=== PATIENT | female | born 1930 | race Caucasian/White ===

== ENCOUNTER 2017-10-29 20:30 | Inpatient (IN) | payer OTHER ==
[~2017-10-29] VITALS: Ht 165.1 cm; Wt 95.7 kg
[2017-10-29 20:30] VITALS: BP 101/58
--- NOTE | 2017-10-29 20:40 | NUR ---
87/F BIBA FROM [facility] FOR HYPOTENSION AND N/V/D. PER EMS, PT'S BP ON SCENE 75/43, BS 158, N/V/D, A.FIB ON 12 LEAD, X45 MINS. PT WAS GIVEN 1L NS BOLUS ON 18G IV L AC, 4MG ZOFRAN IVP. PT AOX3, BEDREST AT THIS TIME, MILD CONFUSION NOTED. BP 101/58, HR 115, SPO2 94% ON O2 2L NC, RR 19 EVEN AND UNLABORED. LUNG SOUNDS CLEAR BL. ABD SOFT ROUND NONTENDER. BL LOWER EXTREMITY BOOTS NOTED. PT DENIES ANY PAIN AT THIS TIME. HX HTN, HYPOTHYROID, OBESITY, GERD, PEDAL EDEMA, PRE-DM, DJD, OA. CONNECTED TO MONITOR. ER MD MADE AWARE.
[2017-10-29] MEDS ORDERED: NACL 0.9% 1,000 ML IV ONE (20:52)
[2017-10-29] MEDS ORDERED: DABI150C PO (21:01)
[2017-10-29] MEDS ORDERED: DOCU-463 PO (21:06)
[2017-10-29] MEDS ORDERED: ASPI81CT89 PO (21:06)
[2017-10-29] MEDS ORDERED: LISI30TA6 PO (21:06)
[2017-10-29] MEDS ORDERED: ATOR10TA PO (21:06)
[2017-10-29] MEDS ORDERED: SENN-73 PO (21:06)
[2017-10-29] MEDS ORDERED: METO25TA PO (21:06)
[2017-10-29] MEDS ORDERED: TRAM50TA1 PO (21:11)
[2017-10-29] MEDS ORDERED: ALEN70SO1 PO (21:11)
[2017-10-29] MEDS ORDERED: MULT-153 PO (21:11)
[2017-10-29] MEDS ORDERED: VITD1000 PO (21:11)
[2017-10-29 21:27] LABS: HEMATOCRIT 44.8 % (36-48); HEMOGLOBIN 14.1 g/dL (12.0-16.0); MEAN CORPUSCULAR HEMOGLOBIN 27 pg (27-31); MEAN CORPUSCULAR HGB CONC 32 g/dL (33-37); PLATELET COUNT (AUTO) 284 K/uL (140-450); RED BLOOD CELL COUNT(AUTO) 5.22 MIL/uL (4.20-5.40); RED CELL DISTRIBUTION WIDTH 17.8 % (11.6-13.7); WHITE BLOOD COUNT (AUTO) 13.9 K/uL (4.8-10.8)
--- NOTE | 2017-10-29 21:30 | NUR ---
PT HAS LOOSE STOOL, PT CLEANED WITH BOARDMARKER. PT TOLERATED WELL.
--- NOTE | 2017-10-29 21:31 | NUR ---
NOTED REDNESS AROUND GENITAL AND BUTTOCKS. OPEN WOUND/POSSIBLE SKIN TEAR NOTED ON BUTTOCKS AND R ABD FOLD.
--- NOTE | 2017-10-29 21:39 | NUR ---
ATTEMPTED TO COLLECT URINE WITH STRAIGHT CATH, UNSUCCESSFUL AFTER 2 TRIES, WILL ATTEMPT AGAIN LATER.
[2017-10-29 21:44] LABS: LYMPHOCYTES % (MANUAL) 10 % (20-46); MONOCYTES % (MANUAL) 4 % (5-12); PROTHROMBIN TIME 15.5 secs (10.8-13.4)
[2017-10-29 21:57] LABS: ALBUMIN 2.1 g/dL (3.4-5.0); ANION GAP 14.7 (8-16); ASPARTATE AMINOTRANSFERASE 23 U/L (15-37); CARBON DIOXIDE 27.2 mmol/L (21-32); CHLORIDE 103 mmol/L (98-107); CREATININE 1.2 mg/dL (0.6-1.3); GLUCOSE 141 mg/dL (74-106); LIPASE 141 U/L (73-393); SODIUM SERUM 142 mmol/L (136-145); TOTAL BILIRUBIN 0.8 mg/dL (0.0-1.0); UREA NITROGEN, BLOOD 16 mg/dL (7-18)
[2017-10-29 21:58] LABS: POTASSIUM 2.9 mmol/L (3.5-5.1)
[2017-10-29] MEDS ORDERED: NACL 0.9% 1,600 ML IV ONE (22:00)
[2017-10-29] MEDS ORDERED: PIPERACILLIN/TAZOBACTAM 3.375 GM in DEXTROSE 5% 50 ML IV ONE (22:05)
[2017-10-29] MEDS ORDERED: PIPERACILLIN/TAZOBACTAM 3.375 GM VIAL IV ONE (22:12)
--- NOTE | 2017-10-29 22:15 | NUR ---
PT TAKEN TO CT
--- NOTE | 2017-10-29 22:36 | NUR ---
PT BACK FROM CT. PT RESTING COMFORTABLY, SPO2 98% ON O2 2L NC, RR 22 EVEN AND UNLABORED. BP 129/102, HR 121 AT THIS TIME. ALL NEEDS MET. Addendum: 10/29/17 at 2238 by AMANDA BP 110/50
[2017-10-29] MEDS ORDERED: KCL 20 MEQ/WATER INJ PREMIX 100 ML IV ONE (22:45)
--- NOTE | 2017-10-29 23:13 | NUR ---
MORNING SHOW HOST AND LADLE REPAIRMAN WITH DR. CARRERA ASSISTING AT BEDSIDE FOR MORENO CATH INSERTION, UNSUCCESSFUL ATTEMPT. PT TOLERATED WELL.
--- NOTE | 2017-10-29 23:30 | NUR ---
PT HAS HAD 4X EPISODE LOOSE BM, PT CLEANED. ALL NEEDS MET AT THIS TIME.
[2017-10-30] VITALS (13 sets, daily range): BP systolic 83–134; BP diastolic 44–71
--- NOTE | 2017-10-30 | NUR ---
BP CONTINUES TO TREND IN THE 80S SBP; MD MADE AWARE. LEVOPHED DRIP ORDERED TITRATE TO KEEP ABOVE 90 MMHG.
[2017-10-30] MEDS ORDERED: LEVOFLOXACIN 750 MG/D5W PREMIX 150 ML IV ONE (00:15)
[2017-10-30] MEDS ORDERED: metroNIDAZOLE 500 MG/NS PREMIX 100 ML IV ONE (00:15)
--- NOTE | 2017-10-30 01:00 | NUR ---
MD ATTEMPTED TO INSERT IV WITH US, UNSUCCESSFUL ATTEMPTS ON BL AC, PT TOLERATED WELL.
--- NOTE | 2017-10-30 01:09 | NUR ---
VS NOTED, ER MD MADE AWARE.
[2017-10-30] MEDS ORDERED: NACL 0.9% 1,000 ML IV ONE (01:25)
[2017-10-30] MEDS ORDERED: NOREPINEPHRINE 8 MG in DEXTROSE 5% 250 ML IV PRN ×2 (01:25→23:10)
--- NOTE | 2017-10-30 01:30 | NUR ---
ER MD AT BEDSIDE TO SPEAK WITH PT. PT ALERT AND ORIENTED TO NAME, TIME, PLACE, SITUATION AT THIS TIME PT ELECTS FOR FULL TREATMENT/FULL CODE, INCLUDING CPR, INTUBATION AND OTHER TREATMENTS.
[2017-10-30] MEDS ORDERED: NACL 0.9% 1,000 ML IV SCH (01:31)
[2017-10-30] MEDS ORDERED: HYDROcodone/APAP 7.5/325 MG 1 TAB PO PRN (01:35)
[2017-10-30] MEDS ORDERED: ONDANSETRON 4 MG/2 ML VIAL IVP PRN (01:35)
[2017-10-30] MEDS ORDERED: ACETAMINOPHEN 325 MG TAB PO PRN (01:35)
[2017-10-30] MEDS ORDERED: fentaNYL 0.05 MG/ML VIAL IVP ONE (01:35)
[2017-10-30] MEDS ORDERED: NOREPINEPHRINE 4 MG/4 ML VIAL IV ONE ×2 (01:43→23:20)
--- NOTE | 2017-10-30 01:57 | NUR ---
HOLD LEVOPHED ORDER AT THIS TIME PER MD, BP 98/56. PT TO BE TRANSFERRED TO ICU
[2017-10-30] MEDS ORDERED: LORazepam 2 MG/ML VIAL IVP ONE (02:00)
[2017-10-30] MEDS ORDERED: NOREPINEPHRINE 4 MG in DEXTROSE 5% 250 ML IV PRN (02:00)
--- NOTE | 2017-10-30 02:00 | NUR ---
Patient will be admitted to care of DR. VILLASENOR. Admited to ICU. Will go to room 5. Belongings list completed. Report to BRITTNEY PEPE.
--- NOTE | 2017-10-30 02:02 | NUR ---
RECEIVED PT FROM ER VIA IMELDA. PT AAO X 2. FOLLOWS COMMANDS. ABLE TO VERBALIZE NEEDS. AFEBRILE. ON O2 4LPM VIA NC. A. FIB ON MONITOR. PT COMPLAINS OF NAUSEA/VOMITTING. ABD SOFT, NONTENDER. LIQUID STOOLS. INCONTINENT. IV SITE L AC 18G PATENT INTACT. R FA 22G PATENT INTACT. L HAND 24G PATENT INTACT. RECEIVING IV BOLUS OF 1L NS. SKIN BRUISING BUE. BILAT BUTTOCK OPEN WOUND. R ADB FOLD OPEN WOUND. JIL AREA REDNESS NOTED. BED IN LOWEST POSITION. SIDE RAILS UP X4. CALL LIGHT WITHIN REACH. WILL CONTINUE TO MONITOR.
[2017-10-30 02:05] LABS: FREE T4 (FREE THYROXINE) 1.4 ng/dL (0.76-1.46); MAGNESIUM 1.9 mg/dL (1.8-2.4); PHOSPHORUS 3.7 mg/dL (2.5-4.9); THYROID STIMULATING HORMONE 6.6 uIU/mL (0.34-3.74)
--- NOTE | 2017-10-30 02:05 | NUR ---
ER NURSE UNABLE TO PERFORM STRAIGHT CATH D/T COLLAPSED BLADDER. WILL ENDORSE TO NEXT SHIFT AND WILL FOLLOW UP ANY ADDITIONAL ORDERS.
[2017-10-30] MEDS ORDERED: KCL 20 MEQ/WATER INJ PREMIX 200 ML IV ONE ×2 (02:30→21:20)
--- NOTE | 2017-10-30 02:30 | NUR ---
CONSENT SIGNED FOR CENTRAL LINE PLACEMENT. RISK AND BENEFITS EXPLAINED.
[2017-10-30] MEDS ORDERED: PROMETHAZINE 25 MG/ML VIAL IM PRN (02:55)
--- NOTE | 2017-10-30 03:10 | NUR ---
DR. FRAUSTO AND ULTRASOUND AT BEDSIDE FOR CENTRAL LINE PLACEMENT. ATIVAN ADMINISTERED PER MD ORDER.
--- NOTE | 2017-10-30 03:20 | NUR ---
CENTRAL LINE INSERTION UNSUCCESSFUL. NO SIGNS OF ACUTE DISTRESS NOTED. PT RESTING QUIETLY IN BED.
--- NOTE | 2017-10-30 03:30 | NUR ---
DR. FRAUSTO ON PHONE WITH DR. PINEDA. WILL CONTINUE TO FOLLOW UP ANY ADDITIONAL ORDERS.
[2017-10-30] MEDS ORDERED: PIPERACILLIN/TAZOBACTAM 2.25 GM in DEXTROSE 5% 50 ML IV ONE (04:00)
[2017-10-30] MEDS ORDERED: PIPERACILLIN/TAZOBACTAM 2.25 GM VIAL IV ONE (04:19)
--- NOTE | 2017-10-30 04:50 | NUR ---
LAB AT BEDSIDE AT THIS TIME. NO SIGNS OF ACUTE DISTRESS AT THIS TIME.
--- NOTE | 2017-10-30 05:15 | NUR ---
PT HAS EPISODE OF DIARRHEA AT THIS TIME. LARGE WATERY. PT CLEANED AND DRIED. NO SIGNS OF ACUTE DISTRESS AT THIS TIME.
[2017-10-30] MEDS: DEXT 5% / NACL 0.45% 1,000 ML IV SCH ×2 (05:54→15:25)
--- NOTE | 2017-10-30 06:15 | NUR ---
HUNG 2ND BAG OF 20MEQ KCL AT THIS TIME. WILL CONTINUE TO MONITOR.
--- NOTE | 2017-10-30 06:22 | NUR ---
XRAY AT BEDSIDE AT THIS TIME
[2017-10-30] MEDS: LEVOTHYROXINE 0.1 MG TAB PO SCH (06:23)
--- NOTE | 2017-10-30 06:25 | NUR ---
DR. SANDOVAL AT BEDSIDE TO EVALUATE PATIENT. UPDATED ON PATIENT'S CONDITION. WILL CONTINUE TO FOLLOW UP ANY ADDITIONAL ORDERS
[2017-10-30 06:26] LABS: HEMATOCRIT 43.5 % (36-48); HEMOGLOBIN 13.7 g/dL (12.0-16.0); MEAN CORPUSCULAR HEMOGLOBIN 27 pg (27-31); MEAN CORPUSCULAR HGB CONC 32 g/dL (33-37); MEAN CORPUSCULAR VOLUME 86.1 fL (80-94); PLATELET COUNT (AUTO) 217 K/uL (140-450); RED BLOOD CELL COUNT(AUTO) 5.05 MIL/uL (4.20-5.40); RED CELL DISTRIBUTION WIDTH 17.9 % (11.6-13.7); WHITE BLOOD COUNT (AUTO) 15.4 K/uL (4.8-10.8)
[2017-10-30] MEDS ORDERED: MORPHINE SULFATE 2 MG/ML SYR IVP PRN (06:35)
--- NOTE | 2017-10-30 06:38 | NUR ---
DR. PINEDA AT BEDSIDE AT THIS TIME. UPDATED ON PATIENT'S CONDITION. WILL CONTINUE TO FOLLOW UP ANY ADDITIONAL ORDERS.
--- NOTE | 2017-10-30 06:40 | NUR ---
DR. SANDOVAL CHANGED PTS CODE STATUS FROM FULL CODE TO DNR. DAUGHTER MADE AWARE. DAUGHTER WILL PROVIDE ADDITIONAL PAPERWORK
--- NOTE | 2017-10-30 06:44 | NUR ---
LAB AT BEDSIDE FOR BLOOD DRAW AT THIS TIME. NO SIGNS OF ACUTE DISTRESS NOTED.
[2017-10-30 06:53] LABS: ANION GAP 17.1 (8-16); CARBON DIOXIDE 24.1 mmol/L (21-32); CHLORIDE 105 mmol/L (98-107); CREATININE 1.3 mg/dL (0.6-1.3); GLUCOSE 139 mg/dL (74-106); POTASSIUM 3.2 mmol/L (3.5-5.1); SODIUM SERUM 143 mmol/L (136-145); UREA NITROGEN, BLOOD 17 mg/dL (7-18)
[2017-10-30 07:11] LABS: LYMPHOCYTES % (MANUAL) 7 % (20-46); MONOCYTES % (MANUAL) 5 % (5-12)
--- NOTE | 2017-10-30 07:17 | NUR ---
TALKED TO SOHAM PICGELY NURSE AWARE OF THE ORDER
--- NOTE | 2017-10-30 07:30 | NUR ---
RECEIVED REPORT FROM COMPUTER SOFTWARE ENGINEER RN. PT SLEEPING IN BED, AROUSABLE. SKIN DRY AND WARM TO TOUCH. A FIB ON MONITOR. ON NC 2 LTR/MIN. SPO2 99%. LUNGS CLEAR ON AUSCULTATION. ABDOMEN SOFT, LARGE AND NON-TENDER. ACTIVE BOWEL SOUND. PERIPHERAL LINES NOTED ON BOTH UPPER EXTREMITIES. ALL LINES ARE INTACT. D5%1/2 NS RUNNING AT 100 ML/HR. KCL RUNNING AT 50 ML/HR. MULTIPLE BRUISES ON BUE. PT NOTED WITH SOFT ON BOTH LOWER EXTREMITIES. SKIN PALE, DRY AND SWOLLEN BLE. SEEN BY DR. MEJIA. OPEN WOUND ON B/L BUTTOCKS. CALL LIGHT WITHIN REACH. BED IN LOW POSITION LOCKED. WILL CONTINUE TO MONITOR.
[2017-10-30] MEDS: MORPHINE SULFATE 2 MG/ML SYR IVP PRN ×3 (08:19→21:21)
--- NOTE | 2017-10-30 08:34 | NUR ---
CALLED DAUGHTER TO GET CONSENT FOR PICC LINE INSERTION. WAITING FOR CALL BACK.
--- NOTE | 2017-10-30 08:46 | NUR ---
PATIENT HAS BEEN SCREENED AND CATEGORIZED HIGH NUTRITION RISK. PATIENT WILL BE SEEN WITHIN 1-2 DAYS OF ADMISSION. 10/30/17 10/31/[address]
[2017-10-30] MEDS: DOCUSATE SODIUM 100 MG GELCAP PO SCH ×2 (08:57→21:00)
--- NOTE | 2017-10-30 08:58 | NUR ---
WILL ADMINISTER PRADAXA AND ASPIRIN AFTER COMPLETION OF PICC LINE PROCEDURE PER DR. MEJIA.
[2017-10-30] MEDS ORDERED: DABIGATRAN ETEXILATE MESYLAT 75 MG CAP PO SCH (09:00)
--- NOTE | 2017-10-30 09:46 | NUR ---
WILL ADMINISTER 0900 PO MEDS AFTER SWALLOW EVAL DONE. PT IS AT RISK FOR CHOCKING PER DAUGHTER. DR. MEJIA AWARE.
--- NOTE | 2017-10-30 09:50 | NUR ---
CM NOTE RECEIVED FAX FROM [facility] [employer] AUTHORIZATION COVERS ADMISSION STAY FROM 10/30/17 TO 10/30/17 1000, AUTH# [id number] PER DR. MEJIA, PATIENT NOT STABLE TO BE TRANSFERRED TO CONTRACTED FACILITY TODAY PER [facility] CORKING MACHINE OPERATOR KELLE PH# [phone], ALL THEIR CM ARE IN A MEETING AND THERE IS NO ASSIGNED CM AT THIS TIME. I INFORMED HER THAT PER OUR DOCTOR, PATIENT NOT YET STABLE TO BE TRANSFERRED TODAY. I GAVE HER MY CONTACT NUMBER TO INFORM THEIR CM ONCE THEY HAVE ASSIGNED ONE. PER KELLE, FAX REVIEWS TO [facility] [phone] INITIAL REVIEW FAXED TO [facility] [phone] PH# [phone]
--- NOTE | 2017-10-30 10:11 | NUR ---
SEEN BY DR. NEWMAN.
[2017-10-30] MEDS ORDERED: LORazepam 2 MG/ML VIAL IVP PRN (10:20)
[2017-10-30] MEDS ORDERED: DILTIAZEM 125 MG in DEXTROSE 5% 100 ML IV SCH (10:30)
--- NOTE | 2017-10-30 10:35 | NUR ---
PICC LINE NURSE AND US TECH AT BEDSIDE FOR PROCEDURE. PT ON STABLE CONDITION.
[2017-10-30] MEDS ORDERED: ALBUTEROL SULFATE/IPRATROPIU 3 ML SOL IH PRN (11:00)
--- NOTE | 2017-10-30 11:16 | NUR ---
Speech Pathology Note Bedside swallow eval order received, chart reviewed. Attempted eval. Pt just received PICC line, but was reportedly given morphine in AM and Ativan at roughly 10:30 am. Pt obtunded, unarousable. Dr. Newman at RN station, indicated that swallow eval is needed to determine if pt can take P.O. meds. However, at this time, pt is not appropriate for eval. D/w RN and MD that pt needs to be alert and able to follow commands for eval. Will reattempt at later time today.
--- NOTE | 2017-10-30 11:24 | NUR ---
PT UNABLE TO DO IS AT THIS TIME
--- NOTE | 2017-10-30 11:28 | NUR ---
RUFUS HAZEL SPOKE WITH SAEZ NIPPLE MAKER HERRERA PH# [phone] TO FOLLOW UP ON WHO THE ASSIGNED CM IS AND TO GIVE A CLINICAL UPDATE. PER HERRERA, SE HAS RECEIVED THE REVIEW SENT TODAY AND THAT HELENE IS THE CM WHO IS CURRENTLY BUSY. PER RUFUS SILVERMAN WILL CALL ME BACK WHEN SHE GETS THE TIME. I ALSO GAVE HER THE NUMBER TO THE NURSING STATION WHERE THE PATIENT IS AND THE ATTENDING PHYS/RESIDENT IF THEY WOULD NEED ANY ADDITIONAL REPORT.
--- NOTE | 2017-10-30 11:41 | NUR ---
SLEEPING IN BED COMFORTABLY. VS WNL. US TECH AT BEDSIDE.
[2017-10-30] MEDS: PIPER/TAZO 3.375GM/D5W PREMIX 50 ML IV SCH ×3 (11:42→23:37)
[2017-10-30] MEDS: HYDROCORTISONE NA SUCC 100 MG/2 ML VIAL IV SCH ×3 (11:43→23:37)
[2017-10-30] MEDS: Z-GUARD PASTE TP SCH (11:45)
--- NOTE | 2017-10-30 12:15 | NUR ---
BEDSIDE SWALLOW EVAL DONE BY RECOMMENDED TO PUT NPO FOR TODAY. SAID SHE WILL RE-ASSESS TOMORROW. DAUGHTER AWARE. DR. MEJIA AWARE.
[2017-10-30] MEDS: LACTOBACILLUS RHAMNOSUS GG 1 EACH CAP PO SCH (12:19)
[2017-10-30] MEDS: ASPIRIN 81 MG TAB.CHEW PO SCH (12:19)
--- NOTE | 2017-10-30 12:23 | NUR ---
HANDOUTS PROVIDED TO THE DAUGHTER REGARDING THE DIAGNOSIS AND PNEUMOTHORAX.
--- NOTE | 2017-10-30 12:36 | NUR ---
S.T. BEDSIDE SWALLOW EVAL COMPLETED TIME IN 1200 TIME OUT 1230 See report for details. Pt presents with severe oropharyngeal dysphagia c/b absent swallow response and labial spillage of boluses given. Pt is at high risk for aspiration. Recommend: 1. Strict NPO. 2. Alternative means of nutrition, hydration and meds. 3. S.T. to follow up x1 tomorrow to reassess swallow function. G8996 CM G8997 CM G8998 CM NOMS LEVEL 6
[2017-10-30] MEDS: metroNIDAZOLE 500 MG/NS PREMIX 100 ML IV SCH ×2 (13:03→21:22)
--- NOTE | 2017-10-30 13:10 | NUR ---
RUFUS HAZEL RECEIVED CALL FROM [facility] RUFUS NARAYAN PH# [phone] AND I GAVE HIM A VERBAL CLINICAL UPDATE AND TOLD HIM PER OUR ATTENDING PHYSICIAN PATIENT IS NOT STABLE FOR TRANSFER TO CONTRACTED FACILITY TODAY. PER RUFUS NARAYAN, HE WILL FOLLOW UP AGAIN TOMORROW.
--- NOTE | 2017-10-30 13:45 | NUR ---
DR. MEJIA AWARE ABOUT US ABDOMEN RESULT AND POSITIVE OCCULT BLOOD.
--- NOTE | 2017-10-30 14:28 | NUR ---
PT RESTING IN BED COMFORTABLY. NO ACUTE RESPIRATORY DISTRESS NOTED. NO CHANGE IN LOC. WILL CONTINUE TO MONITOR.
--- NOTE | 2017-10-30 14:33 | NUR ---
10/30/17 RD INITIAL ASSESSMENT COMPLETED PLEASE REFER TO NUTRITION ASSESSMENT UNDER CARE ACTIVITY FOR ESTIMATED NUTRITIONAL NEEDS. 1. IF PT PASSES SWALLOW EVAL, CONSIDER ADVANCE DIET TOLERATED TO BLAND CCHO 60 GM DIET PER MANAGER PAYMENT RECOMMENDATIONS 2. IF PT FAILS SWALLOW EVAL, CONSIDER NG-TUBE FEED TOLERATED TO VITAL AF 1.2 @ GOAL RATE 80ML/H WITH 200 ML H2O FLUSH Q4H --INITIATE TF AT 10ML/H AND INCREASE RATE BY 10ML Q4-6H --THIS WILL PROVIDE 2304 KCAL (98% ESTIMATED ENERGY NEESD), 144 GM PROTEIN (92% ESTIMATED PROTEIN NEEDS), AND 2357 ML FLUIDS. 3. IF PT PASSES SWALLOW EVAL, RECOMMEND 1 PKT KAREN QD 4. IF PT PASSES SWALLOW EVAL, RECOMMEND 1-[address] C QD [address]. [address] TO FOLLOW-UP 2-3 DAYS, HIGH RISK NICK ARIAS RD
--- NOTE | 2017-10-30 15:30 | NUR ---
PT WAS TAKEN TO RADIOLOGY VIA BED AT 1455 ON STABLE CONDITION. RADIOLOGIST SHAHNAZ STATED THERE IS NO ACCESS TO ABCESS. UNABLE TO PERFORM THE PROCEDURE. RETURN BACK FROM RADIOLOGY AT 1530. PT ON STABLE CONDITION.
--- NOTE | 2017-10-30 17:01 | NUR ---
PT NOTED WITH NO URINE OUTPUT/NO VOIDING. BLADDER SCAN DONE SHOWED 54-[address] ALVAREZ MADE AWARE. Addendum: 10/30/17 at 1727 by Cherelle Mccarthy RN PT DENIES BLADDER DISCOMFORT.
--- NOTE | 2017-10-30 17:46 | NUR ---
CALLED [facility] TO OBTAIN IMMUNIZATION INFORMATION. SAID THEY HAVE NO IMMUNIZATION RECORDS. UNABLE TO OBTAIN IMMUNIZATION STATUS AT THIS TIME. DAUGHTER NOT AWARE ABOUT IMMUNIZATION HISTORY EITHER.
--- NOTE | 2017-10-30 19:53 | NUR ---
REPORT GIVEN TO SETUP TECHNICIAN RN FOR CONTINUITY OF CARE. PT ON STABLE CONDITION.
--- NOTE | 2017-10-30 19:54 | NUR ---
RECEIVED REPORT FROM DAY NURSE. NO ACUTE DISTRESS NOTED. WILL CONTINUE TO OBSERVE.
--- NOTE | 2017-10-30 19:55 | NUR ---
PT ASLEEP EYES CLOSED, IRRITABLE; REFUSING TO FOLLOW SIMPLE COMMANDS. PT DENIES PAIN @ THIS TIME. GENERALIZED WEAKNESS, BILATERAL BRACES TO LOWER EXTREM FROM PREVIOUS FRACTURE. WEAK PULSES UPPER AND LOWER EXTREMTIES, GENERALIZED EDEMA NOTED. PT AFIB ON MONITOR 100S. LUNGS CLEAR TO AUSCULTATION PT ON 2L VIA NASAL CANNULA. PT NPO @ THIS TIME ACTIVE BOWEL SOUNDS. INCONTINENT TO URINE AND STOOL. X1 BM NOTED, IJL CARE GIVEN, TURNED AND REPOSITIONED. PICC LINE TO R UPPER ARM NOTED. IVF INFUSING. SKIN BREAKDOWN NOTED; PRESSURE ULCERS TO BILATERAL BUTTOCKS AREA. IAD TO JIL AREA. OPEN WOUND TO R ABD FOLD. NO OTHER S/S OF ACUTE DISTRESS NOTED. WILL CONTINUE TO OBSERVE.
[2017-10-30] MEDS: ATORVASTATIN 20 MG TAB PO SCH (21:00)
--- NOTE | 2017-10-30 21:00 | NUR ---
NOTIFIED DR GUTIERREZ OF LOW URINE OUTPUT, ORDERED MORENO CATH.
--- NOTE | 2017-10-30 22:19 | NUR ---
NOTIFIED MD ABOUT LOW BP TRENDS, MD AWARE. MD STATED TO MONITOR FOR NOW; WILL CONTINUE TO OBSERVE.
--- NOTE | 2017-10-30 23:30 | NUR ---
LEVOPHED DRIP STARTED
[2017-10-31] VITALS (80 sets, daily range): BP systolic 73–138; BP diastolic 39–88
[2017-10-31 02:19] LABS: APPEARANCE,URINE TURBID (CLEAR); BILIRUBIN,URINE 1+ (NEGATIVE); BLOOD, URINE 3+ (NEGATIVE); COLOR,URINE BROWN (YELLOW); LEUKOCYTE ESTERASE ,URINE 3+ (NEGATIVE); NITRITE, URINE NEGATIVE (NEGATIVE); PH,URINE 5.5 (5.0-9.0); UGLUCOSE NEGATIVE (NEGATIVE)
[2017-10-31 02:42] LABS: RBC,URINE TOO NUMEROUS TO COUN /HPF (0-5); WBC,URINE TOO MANY TO COUNT /HPF (0-5)
[2017-10-31] MEDS: MORPHINE SULFATE 2 MG/ML SYR IVP PRN ×3 (03:15→21:22)
--- NOTE | 2017-10-31 04:30 | NUR ---
LEVOPHED INCREASED TO 8 MCG
--- NOTE | 2017-10-31 05:00 | NUR ---
AM CARE DONE, WOUND CARE DONE PT TOLERATED FAIR. WILL CONTINUE TO MONITOR
[2017-10-31] MEDS: HYDROCORTISONE NA SUCC 100 MG/2 ML VIAL IV SCH ×2 (05:16→11:42)
[2017-10-31] MEDS: metroNIDAZOLE 500 MG/NS PREMIX 100 ML IV SCH (05:17)
[2017-10-31] MEDS: PIPER/TAZO 3.375GM/D5W PREMIX 50 ML IV SCH ×4 (05:17→23:41)
[2017-10-31] MEDS: LEVOTHYROXINE 0.1 MG TAB PO SCH (05:18)
--- NOTE | 2017-10-31 05:30 | NUR ---
DAUGHTER CALLED FOR UPDATE THIS AM. NOTIFIED FAMILY ABOUT STARTING VASOPRESSORS WELL LOW URINE OUTPUT. FAMILY TO DECIDE PLAN OF CARE REGARDING HOW AGGRESSIVE THEY WANT TO GO FOR THEIR MOTHER. WILL UPDATE ONCOMING SHIFT. WILL CONTINUE TO MONITOR.
[2017-10-31 05:51] LABS: HEMATOCRIT 38.5 % (36-48); HEMOGLOBIN 12.2 g/dL (12.0-16.0); MEAN CORPUSCULAR HEMOGLOBIN 27 pg (27-31); MEAN CORPUSCULAR HGB CONC 32 g/dL (33-37); MEAN CORPUSCULAR VOLUME 85.1 fL (80-94); PLATELET COUNT (AUTO) 282 K/uL (140-450); RED BLOOD CELL COUNT(AUTO) 4.52 MIL/uL (4.20-5.40); RED CELL DISTRIBUTION WIDTH 18.1 % (11.6-13.7); WHITE BLOOD COUNT (AUTO) 20.9 K/uL (4.8-10.8)
[2017-10-31 06:20] LABS: ANION GAP 11.9 (8-16); CARBON DIOXIDE 24.9 mmol/L (21-32); CHLORIDE 106 mmol/L (98-107); CREATININE 1.4 mg/dL (0.6-1.3); GLUCOSE 155 mg/dL (74-106); POTASSIUM 3.8 mmol/L (3.5-5.1); SODIUM SERUM 139 mmol/L (136-145); UREA NITROGEN, BLOOD 23 mg/dL (7-18)
[2017-10-31] MEDS ORDERED: VANCOMYCIN PER PHARMACY MC PRN (07:05)
--- NOTE | 2017-10-31 07:23 | NUR ---
REPORT GIVEN TO DAY SHIFT FOR CONTINUITY OF CARE.
--- NOTE | 2017-10-31 07:28 | NUR ---
RECEIVED REPORT FROM OFFSET PROOF PRESS OPERATOR RN. PT SLEEPING IN BED, AROUSABLE. A FIB ON MONITOR. SKIN DRY AND WARM TO TOUCH. ON O2 AT 1 LTR/MIN VIA NC. SATURATING 98%. LUNGS WHEEZES. PICC LINE ON POONAM. INTACT, GOOD BLOOD RETURNS. D5% 1/2 NS RUNNING AT 100ML/HR. LEVOPHED RUNNING AT 8 MCG/MIN. ABDOMEN SOFT ROUND AND TENDERNESS PRESENT. ACTIVE BOWEL SOUND. EDEMATOUS BOTH UPPER AND LOWER EXTREMITIES. BRUISES UPPER EXTREMITIES. FX BOTH LOWER EXTREMITIES ON SOFT CAST. OPEN SKIN ON ABDOMINAL FOLD AND BOTH BUTTOCKS. KEPT HOB ELEVATED. BED IN LOW POSITION LOCKED. WILL CONTINUE TO MONITOR.
[2017-10-31 07:36] LABS: MAGNESIUM 1.5 mg/dL (1.8-2.4); PHOSPHORUS 1.9 mg/dL (2.5-4.9)
[2017-10-31] MEDS: VANCOMYCIN 1GM/DEXT 5% PREMIX 200 ML IV SCH (08:23)
--- NOTE | 2017-10-31 08:36 | NUR ---
PT ON STRICT NPO INCLUDING PO MEDS. WILL FOLLOW UP FOR PO MEDS AFTER SWALLOW EVALUATION.
[2017-10-31 08:38] LABS: LYMPHOCYTES % (MANUAL) 7 % (20-46); MONOCYTES % (MANUAL) 6 % (5-12)
--- NOTE | 2017-10-31 09:41 | NUR ---
UPDATED PT CONDITION TO DR. COVINGTON. ORDERED TO KEEP MAP 60-70.
--- NOTE | 2017-10-31 10:43 | NUR ---
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 DR. MEJIA MADE AWARE.
[2017-10-31] MEDS: Z-GUARD PASTE TP SCH (11:00)
--- NOTE | 2017-10-31 11:15 | NUR ---
WOUND CARE EVALUATION NOTE: REASON FOR EVALUATION: LOW MATT SCORE AND BUTTOCKS WOUNDS SKIN ASSESSMENT DONE WITH PRIMARY RN AT 11:00 AM WITH THIS 81Y/O FEMALE PT ADMITTED FROM [facility] TO [facility] WITH INITIAL DX. ABDOMINAL PAIN. PAST MEDICAL HX INCLUDES HTN, PERICARDITIS, DM, HYPOTHYROIDISM AND POST POLIO SYMPTOMS. ALL ABOVE INFORMATION OBTAINED FROM ADMISSION H&P. LABS ARE WBC 20.9, H/H 12.2/38.5, GLUCOSE 155 AND ALBUMIN 2.1. PT IS AWAKE IN A LOT OF PAIN WHEN TURN AND REPOSITION. SKIN IS WARM AND DRY, BLE NO HAIR GROWTH, BLE FX WITH BRACE ON AT ALL TIMES, NO EDEMA. DORSAL PEDAL PULSES PRESENT AND NORMAL. CAPILLARY REFILLED < 2 SEC. INCONTINENT OF BOWEL X1 DURING ASSESSMENT. PLAN OF CARE DISCUSSED WITH PRIMARY RN. DAUGHTER WAS AT BED SIDE EARLIER AND TREATMENT PLAN DISCUSSED. INTEGUMENTARY: -UPPER EXTREMITIES MULTIPLE ECCHYMOSIS, SKIN THIN AND FRAGILE SKIN -INTERTRIGO LOWER ABDOMINAL FOLD -IAD TO RIGHT AND LEFT INNER BUTTOCKS EXTENDED TO PERIANAL WITH PARTIAL THICKNESS SKIN EROSIONS ON LEFT BUTTOCK 1X0.5X0.1 CM, WOUND BED IS PINK, JIL-WOUND INTACT, CLEAN AND MOIST. NO ODOR. RIGHT BUTTOCK 0.5X0.5CM, WOUND BED IS RED AND DRY, JIL SKIN INTACT. -LLE SANDOVAL AREA WITH DRY SCAB 1.5X2 CM LIGHT BROWN, JIL WOUND INTACT. -BLE AND BILATERAL HEELS DRYNESS RECOMMENDATIONS: -KEEP SKIN DRY AND CLEAN AT ALL TIMES, PLEASE CHECK Q2H AND PRN FOR INCONTINENCY OF BOWEL. -PLEASE REMOVE FOOT BRACE CAREFULLY AND INSPECT BILATERAL HEELS Q SHIFT UNLESS OTHERWISE CONTRAINDICATED TO PREVENT MEDICAL DEVICES RELATED PRESSURE INJURY. -APPLY NYSTATIN POWDER TO LOWER ABDOMINAL FOLD BIDWC AND OPEN TO AIR -APPLY HYDRAGUARD TO R/L LE AND BILATERAL HEELS BID AND PRN AND OPEN TO AIR - APPLY Z-GUARD TO INNER BUTTOCKS EXTENDED TO PERIANAL BID AND PRN IF SOILING, OPEN TO AIR -OFFLOAD BILATERAL HEELS BY PLACING PILLOWS UNDER CALVES UNLESS OTHERWISE CONTRAINDICATED -PRESSURE REDISTRIBUTION SURFACE THERAPY -TURN AND REPOSITION Q2H, OFFLOAD SACRALCOCCYX AND BUTTOCKS BY TURNING RIGHT AND LEFT -CONTINUE TO FOLLOW RD RECOMMENDATIONS ALL ABOVE RECOMMENDATIONS DISCUSSED WITH PRIMARY RN. AND DR. MEJIA. WILL FOLLOW UP PT Q7-10 DAYS. PLEASE CONTACT WOUND CARE NURSE FOR ANY QUESTION AND CHANGE OF WOUND CONDITION.
[2017-10-31] MEDS: DEXT 5% / NACL 0.45% 1,000 ML IV SCH ×2 (11:25→20:31)
--- NOTE | 2017-10-31 11:30 | NUR ---
RUFUS NOTE CONCURRENT REVIEW AND ORDER FOR PALLIATIVE CARE FAXED TO [facility] [phone] PH# [phone]. PER [facility] PH# [phone], RUFUS NARAYAN IS CURRENTLY BUSY AT THIS TIME BUT WILL CALL BACK WHEN HE BECOMES AVAILABLE.
--- NOTE | 2017-10-31 11:36 | NUR ---
SWALLOW EVAL DONE. FAILED SWALLOW EVAL PER ST. RECOMMENDED STRICT NPO INCLUDING MEDS. DR. MEJIA AWARE.
[2017-10-31] MEDS: DOCUSATE SODIUM 100 MG GELCAP PO SCH ×2 (11:38→20:48)
[2017-10-31] MEDS: LACTOBACILLUS RHAMNOSUS GG 1 EACH CAP PO SCH (11:38)
[2017-10-31] MEDS: ASPIRIN 81 MG TAB.CHEW PO SCH (11:38)
--- NOTE | 2017-10-31 11:41 | NUR ---
SPEECH PATHOLOGY DAILY NOTE/DISCHARGE SUMMARY Time in/out: 11:10/11:40 S: Repeat bedside swallow eval completed. Family not at bedside at time of eval. Pt awake but with eyes closed. Answered some questions and followed some simple commands. Pt c/o pain when being moved to upright position in bed. O: P.O. trials of nectar thick and honey thick liquids and applesauce given in 1/4 tsp boluses. Pt demonstrated severe labial spillage and even intentional spitting out of boluses. Inconsistent pharyngeal swallow responses observed. Pt initiated moderately delayed swallow 2 out of 8 trials. Throat clear x 1 immediately after swallows. A: Severe oropharyngeal dysphagia. Pt is at high risk for aspiration. Recommend continued strict NPO, including P.O. meds. Pt presents as poor rehab candidate. D/w BRITTNEY Villarreal and Dr Collins who asked if long-term non-oral feeding such as PEG is recommended. Clinician stated and will reiterate that pt is a poor rehab candidate and pursuing long-term non-oral feeding is not recommended, as it poses bioethical issues. Will defer decision to MD and family members. No further ST tx is indicated at this time. Will discharge pt to [facility]. G8997 CM G8998 CM NOMS LEVEL 6
--- NOTE | 2017-10-31 12:14 | NUR ---
120 ML URINE OUTPUT NOTED SINCE THIS MORNING. DR. MEJIA AWARE.
--- NOTE | 2017-10-31 12:23 | NUR ---
DR. MEJIA MADE AWARE ABOUT LOW PHOSPHORUS AND MAGNESIUM.
--- NOTE | 2017-10-31 12:53 | NUR ---
SEEN BY DR. NEWMAN. MADE AWARE ABOUT FAMILY CONCERN REGARDING PLAN OF CARE. STATED FAMILY NEEDS TO TALK WITH DR. VILLASENOR.
[2017-10-31] MEDS: NYSTATIN POW 100 MU/GM 15 GM BTL TP SCH (13:58)
--- NOTE | 2017-10-31 14:49 | NUR ---
CM NOTE RECEIVED CALL FROM [facility]# [phone] WHO SAID PATIENT HAS [facility]ARE AND PATIENT IS NOT STABLE TO BE TRANSFERRED TO CONTRACTED FACILITY TODAY AND THAT HE WILL FOLLOW UP AGAIN TOMORROW. DR. MEJIA INFORMED.
[2017-10-31] MEDS ORDERED: MAG SULF 2000 MG/WATER PREMIX 50 ML IV ONE (14:50)
[2017-10-31] MEDS ORDERED: SODIUM PHOS / POTASSIUM PHOS 1 PKT PDR PO SCH (15:30)
[2017-10-31] MEDS: MAGNESIUM SULFATE 1GM in DEXTROSE 5% 100 ML PREMIX IV SCH ×2 (16:52→18:09)
[2017-10-31] MEDS: CHLORHEXADINE GLUC 2% CLOTH TP SCH (16:53)
[2017-10-31] MEDS: MUPIROCIN CA NASAL 2% 1GM TUBE NS SCH (16:53)
--- NOTE | 2017-10-31 17:07 | NUR ---
RESTING IN BED. NO ACUTE RESPIRATORY DISTRESS NOTED NO CHANGE IN LOC. WILL CONTINUE TO MONITOR.
--- NOTE | 2017-10-31 18:29 | NUR ---
BP DROPPED DOWN TO 82/49. DR. GUTIERREZ AWARE. SAID CALL DAUGHTER TO RESTART LEVOPHED. CALL DAUGHTER. CALL WAS BUSY UNABLE TO SPEAK WITH DAUGHTER AT THIS TIME. WILL CALL AGAIN.
[2017-10-31] MEDS ORDERED: GENTAMICIN PER PHARMACY MC PRN (18:35)
--- NOTE | 2017-10-31 18:36 | NUR ---
SPOKE WITH DAUGHTER. MADE AWARE ABOUT PT CONDITION AND LOW BLOOD PRESSURE. SAID WILL CALL US BACK.
--- NOTE | 2017-10-31 19:10 | NUR ---
RECEIVED CALL BACK FROM DAUGHTER. SAID OKAY TO RESTART LEVOPHED IF MAP BELOW 60.
--- NOTE | 2017-10-31 19:23 | NUR ---
ENDORDED TO SUSTAINABLE DESIGN CONSULTANT RN FOR CONTINUITY OF CARE. PT ON STABLE CONDITION.
--- NOTE | 2017-10-31 19:30 | NUR ---
RECEIVED REPORT FROM DAY NURSE NO ACUTE DISTRESS NOTED. WILL CONTINUE TO MONITOR.
--- NOTE | 2017-10-31 19:45 | NUR ---
PT ASLEEP, AROUSABLE. PT DENIES PAIN @ THIS TIME. GENERALIZED WEAKNESS NOTED, BILATERAL BRACES IN PLACE. +1 PULSES UPPER AND LOWER EXTREMITIES; EDEMA NOTED. PT AFIB/AFLUTTER ON MONITOR 110-120S. LUNGS RHONCHI, DIMINISHED TO AUSCULTATION PT ON 2L VIA NASAL CANNULA. PT NPO @ THIS TIME + BOWEL SOUNDS. MORENO CATH IN PLACE, SCANT HERRERA CLOUDY URINE. PICC LINE TO R UPPER ARM NOTED. IVF INFUSING. SKIN BREAKDOWN NOTED; PRESSURE ULCERS TO BILATERAL BUTTOCKS AREA. IAD TO JIL AREA. OPEN WOUND TO R ABD FOLD. NO OTHER S/S OF ACUTE DISTRESS NOTED. WILL CONTINUE TO OBSERVE.
[2017-10-31] MEDS ORDERED: GENTAMICIN 120 MG in NACL 0.9% 100 ML IV SCH (20:00)
[2017-10-31] MEDS ORDERED: GENTAMICIN 80 MG/2 ML VIAL ONE (20:17)
[2017-10-31] MEDS: ATORVASTATIN 20 MG TAB PO SCH (20:49)
--- NOTE | 2017-10-31 22:00 | NUR ---
PT TURNED AND REPOSITIONED, FAMILY @ BEDSIDE.
[2017-11-01] VITALS (8 sets, daily range): BP systolic 84–115; BP diastolic 50–86
--- NOTE | 2017-11-01 | NUR ---
PT REPOSITIONED, REORIENTED PT ABOUT ICU ENVIRONMENT AND REASSURED PT ABOUT PLAN OF CARE. NO S/S OF DISTRESS NOTED. WILL CONTINUE TO OBSERVE.
[2017-11-01] MEDS: NYSTATIN POW 100 MU/GM 15 GM BTL TP SCH ×2 (01:56→12:42)
--- NOTE | 2017-11-01 03:51 | NUR ---
AM CARE DONE, X1 BM NOTED, CHG BATH GIVEN PER PROTOCOL. OFFERED ORAL CARE, PT AGREED AND ONCE STARTED BEGAN TO SCREAM AND YELL WITH SUDDEN OUTBURSTS. PT THEN BEGAN TO REFUSE TREATMENT. PT STATED SHE WAS FEARFUL; TO WHICH WE REASSURED SHE WAS SAFE. NO OTHER S/S OF ACUTE DISTRESS NOTED. WILL CONTINUE TO OBSERVE.
--- NOTE | 2017-11-01 05:00 | NUR ---
DAUGHTER CALLED UPDATED WITH PT CONDITION. PT MORE AWAKE, CONFUSED @ TIMES. NO ACUTE DISTRESS NOTED. WILL CONTINUE TO OBSERVE.
[2017-11-01 05:09] LABS: HEMATOCRIT 34.1 % (36-48); HEMOGLOBIN 10.8 g/dL (12.0-16.0); MEAN CORPUSCULAR HEMOGLOBIN 27 pg (27-31); MEAN CORPUSCULAR HGB CONC 32 g/dL (33-37); PLATELET COUNT (AUTO) 228 K/uL (140-450); RED BLOOD CELL COUNT(AUTO) 3.96 MIL/uL (4.20-5.40); RED CELL DISTRIBUTION WIDTH 18.1 % (11.6-13.7); WHITE BLOOD COUNT (AUTO) 15.3 K/uL (4.8-10.8)
[2017-11-01 05:37] LABS: ANION GAP 10.5 (8-16); CARBON DIOXIDE 24.6 mmol/L (21-32); CHLORIDE 104 mmol/L (98-107); CREATININE 1.3 mg/dL (0.6-1.3); GLUCOSE 115 mg/dL (74-106); PHOSPHORUS 1.6 mg/dL (2.5-4.9); POTASSIUM 3.1 mmol/L (3.5-5.1); SODIUM SERUM 136 mmol/L (136-145); UREA NITROGEN, BLOOD 21 mg/dL (7-18)
[2017-11-01] MEDS: PIPER/TAZO 3.375GM/D5W PREMIX 50 ML IV SCH ×2 (05:45→11:39)
[2017-11-01] MEDS: LEVOTHYROXINE 0.1 MG TAB PO SCH (06:20)
[2017-11-01 06:53] LABS: LYMPHOCYTES % (MANUAL) 4 % (20-46); MONOCYTES % (MANUAL) 5 % (5-12)
[2017-11-01] MEDS: DEXT 5% / NACL 0.45% 1,000 ML IV SCH (06:59)
--- NOTE | 2017-11-01 07:13 | NUR ---
NOTIFIED DR ALVAREZ OF K+ 3.1; STATED HE WOULD RELAY MESSAGE TO DR. ROBERTO MD TO FOLLOW UP WILL CONTINUE TO OBSERVE.
--- NOTE | 2017-11-01 07:29 | NUR ---
REPORT GIVEN TO DAY SHIFT RN FOR CONTINUITY OF CARE.
--- NOTE | 2017-11-01 07:30 | NUR ---
RECEIVED REPORT FROM PHYSICAL CHEMIST RN AT BEDSIDE, PT IS AAOX2, ABLE TO FOLLOW COMMANDS AND MAKE NEEDS KNOWN. VSS, DENIES PAIN, NO S/S OF DISTRESS, DIMINISHED LUNG SOUNDS OTIS, ON RA, O2 SAT 99%. DENIES CHEST PAIN, A-FIB ON STEREOTYPE CASTER, SOFT ABDOMEN WITH HYPOACTIVE BOWEL SOUNDS, NPO NOTED. F/C IN PLACE WITH CLEAR YELLOW URINE TO GRAVITY, UNABLE TO MOVE ALL EXTREMITIES, SKIN IS WARM AND DRY TO TOUCH, MULTIPLE BRUISES ON BUE, OPEN WOUND ON B/L BUTTOCKS. (SEE WOUND ASSESSMENT), PICC LINE TO POONAM, PATENT, RUNNING D51/2 NS AT 100ML/HR, PERIPHERAL LINE TO RIGHT FOREARM 22GA, PATENT AND SL. PLACED PT IN COMFORT POSITION, HOB ELEVATED, SAFETY MEASURES IN PLACE, CALL LIGHT WITHIN REACH, WILL CONTINUE TO MONITOR.
[2017-11-01] MEDS: DOCUSATE SODIUM 100 MG GELCAP PO SCH (08:17)
[2017-11-01] MEDS: ASPIRIN 81 MG TAB.CHEW PO SCH (08:17)
[2017-11-01] MEDS: LACTOBACILLUS RHAMNOSUS GG 1 EACH CAP PO SCH (08:17)
[2017-11-01] MEDS: Z-GUARD PASTE TP SCH (08:18)
[2017-11-01] MEDS: VANCOMYCIN 1GM/DEXT 5% PREMIX 200 ML IV SCH (08:25)
[2017-11-01] MEDS ORDERED: LACTOBACILLUS RHAMNOSUS GG 1 EACH CAP PO SCH (09:00)
--- NOTE | 2017-11-01 09:00 | NUR ---
PT IS NOT ABLE TO SWALLOW MEDICATION AT THIS TIME, MD AWARE, STILL ON NPO.
--- NOTE | 2017-11-01 09:03 | NUR ---
RUFUS NOTE CONCURRENT REVIEW AND ORDER TO DC BACK TO FACILITY FAXED TO SE [phone] PH# [phone], RUFUS NARAYAN PH# [phone]
[2017-11-01] MEDS ORDERED: KCL 20 MEQ/WATER INJ PREMIX 100 ML IV SCH (10:00)
[2017-11-01] MEDS: MORPHINE SULFATE 2 MG/ML SYR IVP PRN (10:25)
--- NOTE | 2017-11-01 12:00 | NUR ---
PT IS ASLEEP IN BED, NO S/S OF DISTRESS, VSS, DENIES PAIN, POSITION CHANGED FOR OFF LOAD PRESSURE.
--- NOTE | 2017-11-01 13:00 | NUR ---
Notcher Notes: I called Parvin from admissions at [facility] at to discuss and gather additional information about Patient. I discuss with Parvin my conversation with patient's daughter and she confirmed that Patient was already receiving services with [facility]. I Confirmed with Lorri if patient can returned back and discuss coordination and transport arrangements. 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
--- NOTE | 2017-11-01 13:30 | NUR ---
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 Lorri provided Palliative Care LETICIA Jones [phone] information and contact. I thanked her for the information and I ended the call.
--- NOTE | 2017-11-01 13:45 | NUR ---
PT'S DAUGHTER AT BEDSIDE, NOTIFIED PT WILL BE DISCHARGED BACK TO [facility], SIGNED TRANSFER CONSENT.
[2017-11-01] MEDS ORDERED: BACTNA NS (14:22)
[2017-11-01] MEDS ORDERED: CHLO118S2 TP (14:22)
[2017-11-01] MEDS ORDERED: KETOROLAC 30 MG/ML VIAL IM ONE (15:00)
--- NOTE | 2017-11-01 15:00 | NUR ---
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
[2017-11-01] MEDS ORDERED: KETOROLAC 30 MG/ML VIAL IVP ONE (15:05)
[2017-11-01] MEDS: MUPIROCIN CA NASAL 2% 1GM TUBE NS SCH (15:20)
[2017-11-01] MEDS: CHLORHEXADINE GLUC 2% CLOTH TP SCH (15:20)
[2017-11-01] MEDS ORDERED: KETOROLAC 30 MG/ML VIAL IVP SCH (15:30)
--- NOTE | 2017-11-01 16:07 | NUR ---
PICC LINE REMOVED, MORENO CATHETER REMOVED ORDERED, PT TOLERATED WELL.
--- NOTE | 2017-11-01 16:09 | NUR ---
PT PICKED UP BY [facility], DISCHARGE PACKAGE GIVEN AND ALL BELONGS WITH PT.
[2017-11-01] MEDS ORDERED: GENTAMICIN 120 MG in DEXTROSE 5% 100 ML IV SCH (20:00)
--- NOTE | 2017-11-02 07:52 | NUR ---
DISCHARGE SUMMARY FAXED TO [facility] [phone]
== END 2017-11-01 16:10 | disposition hospice, inpatient (51) | DRG 871 ==
LOC: MED 20:30 → MIC 10-30 01:37
PROVIDERS: ADMIT General Practice; ATTEND General Practice
PROC: 02HV33Z Insertion of Infusion Device into Superior Vena Cava, Percutaneous Approach (ICD-10-PCS; principal; 2017-10-30)
PROC: B548ZZA Ultrasonography of Superior Vena Cava, Guidance (ICD-10-PCS; 2017-10-30)
DX: A41.9 Sepsis, unspecified organism (principal); R65.21 Severe sepsis with septic shock; E43 Unspecified severe protein-calorie malnutrition; J98.11 Atelectasis; N39.0 Urinary tract infection, site not specified; N82.4 Other female intestinal-genital tract fistulae; I31.3 Pericardial effusion (noninflammatory); K57.20 Diverticulitis of large intestine with perforation and abscess without bleeding; E87.6 Hypokalemia; E78.5 Hyperlipidemia, unspecified; Z66 Do not resuscitate; E03.9 Hypothyroidism, unspecified; E11.9 Type 2 diabetes mellitus without complications; E66.01 Morbid (severe) obesity due to excess calories; Z68.35 Body mass index [BMI] 35.0-35.9, adult; F03.90 Unspecified dementia, unspecified severity, without behavioral disturbance, psychotic disturbance, mood disturbance, and anxiety; G14 Postpolio syndrome; I11.9 Hypertensive heart disease without heart failure; I48.91 Unspecified atrial fibrillation; K21.9 Gastro-esophageal reflux disease without esophagitis; M19.90 Unspecified osteoarthritis, unspecified site; R13.10 Dysphagia, unspecified; Z90.710 Acquired absence of both cervix and uterus; Z90.49 Acquired absence of other specified parts of digestive tract; L89.152 Pressure ulcer of sacral region, stage 2
CPT/HCPCS: 36415; 71045; 76705; 77012; 80048; 80053; 81001; 82150; 82272; 83036; 83605; 83690; 83735; 83880; 84100; 84439; 84443; 84484; 85025; 85610; 87040; 87081; 87086; 92526; 92610; 93005; 96365; 96366; 96367; 96368; 96375; 99291; A4649; C1751; J1580; J1642; J1644; J1720; J1885; J1956; J2060; J2270; J2405; J2543; J3010; J3370; J3480; J3490; J7030; J7060; Q0092